=== PATIENT | female | born 1945 | race Caucasian/White ===

== ENCOUNTER 2018-12-31 12:29 | Emergency (ER) | payer MEDICARE ==
[~2018-12-31] VITALS: Wt 68.0 kg
[2018-12-31 14:00] VITALS: BP 123/78; PULSE 78; RESP 18
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
== END 2018-12-31 14:00 | disposition home or self-care (01) ==
LOC: FTE 12:29
DX: R51 Headache (principal)
CPT/HCPCS: 99282